=== PATIENT | male | born 1980 | race Two or more races ===

== ENCOUNTER 2024-06-29 23:37 | Emergency (ER) | payer MEDICAID, SELFPAY ==
[2024-06-29 23:48] VITALS: BP 130/86; PULSE 98; RESP 18; TEMP 36.9; O2SAT 99; BMI 25.0
[2024-06-30] MEDS: ONDANSETRON ODT 4 MG TABRAP PO (00:10)
[2024-06-30] MEDS: HYDROcodone/APAP 5/325 TABLET 1 TAB PO (00:10)
--- NOTE | 2024-06-30 00:51 | EDNOTE_ITS ---
Nausea/Vomit./Diarrhea-RME/HPI General Chief complaint: Abdominal Pain Stated complaint: ABD PAIN,N/VD Time Seen by Provider: 06/30/24 00:00 Arrival date/time: 06/29/24 23:37 43M with no significant PMH presents to ED with N/V, ab pain/cramping (comes in waves), and non-bloody diarrhea after he ate some chicken. Limitations: no limitations Related Data Previous Rx's ?Medication ?Instructions ?Recorded acetaminophen 650 mg 650 mg PO Q8H PRN fever or p ain 06/30/24 tablet,extended release #30 tabs ondansetron 4 mg disintegrating 4 mg PO Q8H PRN nausea and 06/30/24 tablet vomiting #20 tabs Allergies Allergy/AdvReac Type Severity Reaction Status Date / Time No Known Allergies Allergy Verified 06/29/24 23:41 Review of Systems Review of Systems Systems Reviewed: All systems reviewed, normal except as documented Constitutional Constitutional: Reports system reviewed and no additional complaints, except as documented, Denies fever(s) and Denies headache(s) ENT Ears, Nose, Mouth, and Throat: Denies disequilibrium and Denies headache(s) Cardiovascular Cardiovascular: Reports system reviewed and no additional complaints, except as documented, Denies chest pain and Denies dyspnea Respiratory Respiratory: Reports system reviewed and no additional complaints, except as documented, Denies cough and Denies dyspnea Gastrointestinal Gastrointestinal: Reports system reviewed and no additional complaints, except as documented, Reports as per HPI, Reports abdominal pain, Reports diarrhea, Reports nausea and Reports vomiting Neurologic Neurologic: Reports system reviewed and no additional complaints, except as documented, Denies confusion, Denies disequilibrium and Denies headache(s) Psychiatric Psychiatric: Denies confusion Past Medical History Social History SMOKING STATUS: Never smoker ED Exam General Limitations: Present no limitations General appearance: Present alert and in no apparent distress Head Head exam: Present atraumatic Eye Eye exam: Present normal appearance, PERRL and EOMI ENT ENT exam: Present normal exam, normal oropharynx and mucous membranes moist Neck Neck exam: Present normal inspection, full ROM and trachea midline Chest Chest inspection: Present normal inspection and symmetric chest wall rise Respiratory Respiratory exam: Present normal lung sounds bilaterally Cardiovascular Cardiovascular exam: Present regular rate, normal rhythm and normal heart sounds Abdominal Exam Abdominal exam: Present soft, tenderness and normal bowel sounds Abdominal tenderness: Present mild Extremities Exam Extremities exam: Present normal inspection and full ROM Back Exam Back exam: Present normal inspection and full ROM Neurological Exam Neurological exam: Present alert, oriented X3 and CN II-XII intact Psychiatric Psychiatric exam: Present normal affect and normal mood Skin Skin exam: Present warm, dry, intact and normal color Course Quality Measures none Orders Category Date Time Status HYDROcodone*/APAP 5/325 [Harper 5/325] Med 06/30/24 00:02 Discontinued 1 tab PO X1 ONE Ondansetron Odt [Zofran Odt] Med 06/30/24 00:02 Discontinued 4 mg PO X1 ONE Vital Signs Vital signs: Vital Signs Temperature 98.5 F 06/29/24 23:48 Pulse Rate 98 06/29/24 23:48 Respiratory Rate 18 06/29/24 23:48 Blood Pressure 130/86 H 06/29/24 23:48 Pulse Oximetry (%) 99 06/29/24 23:48 Oxygen Delivery Method Room Air 06/29/24 23:48 O2 at 99% on RA and WNLs Nausea/Vomiting/Diarrhea MDM Narrative MDM Narrative:: 43M with no significant PMH presents to ED with N/V, ab pain/cramping (comes in waves), and non-bloody diarrhea after he ate some chicken. Physical exam reveals mild gen ab tenderness. Patient is afebrile, calm, and alert. Gait normal. Likely viral gastroenteritis vs food poisoning. PO challenge passed. Meds relieved symptoms. Patient data External records reviewed:: [facility] previous records Clinical information provided by:: patient Social determinants that could affect healthcare access:: none Patient has the following chronic illnesses:: none How is presenting disease/condition affected by chronic disease/condition?: no chronic disease Evaluation data The following diagnostics were reviewed and interpreted by me:: other (specify) (none) Lab and/or radiology exams considered but not ordered:: not ordered Interpretation Summary: n/a Medications / Prescriptions Medications / Prescriptions considered but not ordered:: ordered Medication administrations:: Medication Administration History Discontinued Medications Hydrocodone Bitart/Acetaminophen (Hydrocodone/Apap 5/325 Tablet) 1 tab PO X1 ONE Stop: 06/30/24 00:03 Last Admin: 06/30/24 00:10 Dose: 1 tab Documented By: Ondansetron HCl (Ondansetron Odt 4 Mg Tabrap) 4 mg PO X1 ONE; Protocol Stop: 06/30/24 00:03 Last Admin: 06/30/24 00:10 Dose: 4 mg Documented By: above Consultations Consultation(s) initiated? (list below): No Diagnosis Nausea Differential Diagnosis: traveler's diarrhea, food poisoning, gastroenteritis, clostridium difficile infection, drug-induced nausea and vomiting and dehydration Most likely diagnosis given after review of the tests above:: food poisoning Admission Indicated Admission indicated?: not indicated Admission Request Was there a request for admission?: No Disposition Plan Disposition Plan: Discharge Discharge Attestation Discharge Attestation: The patient and all family members were given an opportunity to ask questions and understood the discharge instructions. Discharge instructions specifically effects, indications for sooner follow up or return to the emergency department, and the expected course of current diagnosis. Patient condition: Stable Discharge Plan Plan Patient Disposition: HOME (Self Care) Disposition Comment: Stable Prescriptions/Referrals Prescriptions/Med Rec: New ondansetron 4 mg tablet,disintegrating 4 mg PO Q8H PRN (Reason: nausea and vomiting) Qty: 20 0RF acetaminophen 650 mg tablet extended release 650 mg PO Q8H PRN (Reason: fever or pain) Qty: 30 0RF Referrals: Jerod Perez MD [Primary Care Provider] - In 1 week Problem List Clinical Impression: Food poisoning Patient/Caregiver Discharge Instructions Education Materials: ED Food Poison Or Gastroenteritis Additional Instructions: Please follow-up with PCP within 24-48 hours and return immediately if symptoms worsen. Ibuprofen/Tylenol can be used simultaneously for greater fever/pain control. Keep hydrated. Advance diet as tolerated. Print Language: Cymro Stand Alone Forms: Patient Portal Info Letter ORION/IVETT Supervising Physician ORION/IVETT Supervising Physician: Dr. Anand
[2024-06-30 01:12] VITALS: RESP 18
== END 2024-06-30 01:13 | disposition home or self-care (01) ==
PROVIDERS: Emergency Provider Emergency Medicine; PCP Family Medicine
DX: A05.9 Bacterial foodborne intoxication, unspecified (principal)
CPT/HCPCS: 99283; Q0162; A9270